=== PATIENT | male | born 1960 | race African-American/Black ===

== ENCOUNTER 2023-06-17 21:38 | Emergency (ER) | payer BC ==
[~2023-06-17] VITALS: Ht 182.9 cm; Wt 108.0 kg
[2023-06-17 22:32] VITALS: BP_SYST 115; PULSE 89; RESP 16; TEMP 97.6; O2SAT 95
[2023-06-17 23:36] LABS: INFLUENZA TYPE B NEGATIVE (NEGATIVE)
[2023-06-17 23:37] LABS: INFLUENZA TYPE A NEGATIVE (NEGATIVE)
[2023-06-17 23:39] LABS: COVID19 ANTIGEN SOFIA FIA POSITIVE (NEGATIVE)
[2023-06-17] MEDS ORDERED: NIRM1TAB PO ×2 (23:53→23:58)
[2023-06-17] MEDS ORDERED: PHEDM120 PO ×2 (23:53→23:58)
[2023-06-17] MEDS ORDERED: IBUP-1969 PO ×2 (23:53→23:58)
[2023-06-18 00:20] VITALS: BP_SYST 135; PULSE 91; RESP 16; TEMP 97.6; O2SAT 95
== END 2023-06-18 00:21 | disposition home or self-care (01) ==
LOC: SED 21:38
DX: U07.1 COVID-19 (principal); R05.9 Cough, unspecified; R09.81 Nasal congestion; M79.10 Myalgia, unspecified site; Z79.899 Other long term (current) drug therapy
CPT/HCPCS: 36415; 71045; 99284

== ENCOUNTER 2023-09-11 06:23 | Emergency (ER) | payer BC ==
[~2023-09-11] VITALS: Ht 182.9 cm; Wt 104.3 kg
[~2023-09-11 06:23] MED LIST: CHLO25TA2 PO; IBUP-1969 PO; LOSA50TA28 PO; PHEDM120 PO; TAMS0.4C96 PO
[2023-09-11 06:33] VITALS: BP_SYST 157; PULSE 74; RESP 18; TEMP 97.4; O2SAT 96
[2023-09-11] MEDS ORDERED: NEO/5DRO3 OP ×2 (06:53→12:44)
[2023-09-11 07:06] VITALS: BP_SYST 157; PULSE 74; RESP 18; TEMP 97.4; O2SAT 96
== END 2023-09-11 07:07 | disposition home or self-care (01) ==
LOC: SED 06:23
DX: B30.9 Viral conjunctivitis, unspecified (principal); H57.89 Other specified disorders of eye and adnexa; I10 Essential (primary) hypertension; Z79.899 Other long term (current) drug therapy
CPT/HCPCS: 99283

== ENCOUNTER 2023-10-13 06:50 | Inpatient (IN) | payer BC ==
[~2023-10-13] VITALS: Ht 188 cm; Wt 103.6 kg
[~2023-10-13 06:50] MED LIST changes: +NEO/5DRO3 OP
[2023-10-13 07:02] VITALS: BP_SYST 117; PULSE 86; RESP 18; TEMP 99.2; O2SAT 94
[2023-10-13 07:24] LABS: BASOPHILS % (AUTO) 0.2 % (0.0-2.0); EOSINOPHILS % (AUTO) 0.5 % (0.0-4.0); HEMATOCRIT 49.2 % (36-54); HEMOGLOBIN 16.7 g/dL (14.0-18.0); LYMPHOCYTES # (AUTO) 0.4 K/uL (1.0-5.5); LYMPHOCYTES % (AUTO) 7.2 % (20.5-51.5); MEAN CORPUSCULAR HEMOGLOBIN 31 pg (27-31); MEAN CORPUSCULAR HGB CONC 34 % (32-36); MEAN CORPUSCULAR VOLUME 90 fL (79.0-98.0); MONOCYTES # (AUTO) 0.7 K/uL (0.0-1.0); MONOCYTES % (AUTO) 11.3 % (1.7-9.3); NEUTROPHILS # (AUTO) 4.9 K/uL (1.8-7.7); NEUTROPHILS % (AUTO) 80.8 % (40.0-70.0); PLATELET COUNT (AUTO) 156 K/uL (130-430); RED BLOOD CELL COUNT(AUTO) 5.46 MIL/uL (4.2-6.2); RED CELL DISTRIBUTION WIDTH 13.7 % (9.0-15.0); WHITE BLOOD COUNT (AUTO) 6.1 K/uL (4.8-10.8)
[2023-10-13 07:38] LABS: CALCIUM 8.9 mg/dL (8.4-11.0); CREATININE 1.03 mg/dL (0.55-1.30); POTASSIUM 3.6 mmol/L (3.5-5.1)
[2023-10-13] MEDS: MORPHINE 2 MG/ML INJ. SYRINGE IVP ONE ×2 (08:00→09:45)
[2023-10-13] MEDS: ONDANSETRON HCL 4 MG/2 ML VIAL IVP ONE (08:27)
[2023-10-13 09:41] LABS: BILIRUBIN,URINE NEGATIVE (NEGATIVE); BLOOD, URINE NEGATIVE (NEGATIVE); CLARITY/URINE CLEAR (CLEAR); COLOR,URINE YELLOW (YELLOW); GLUCOSE,URINE NEGATIVE (NEGATIVE); KETONES,URINE NEGATIVE (NEGATIVE); LEUKOCYTE ESTERASE ,URINE NEGATIVE (NEGATIVE); NITRITE, URINE NEGATIVE (NEGATIVE); PROTEIN URINE NEGATIVE (NEGATIVE); UROBILINOGEN,URINE 0.2 (0.2-1.0)
[2023-10-13] MEDS ORDERED: FLUT1BLS PO (09:52)
[2023-10-13] MEDS ORDERED: GASTROGRAFIN 120 ML ONE (13:10)
[2023-10-13] MEDS: KCL 20 mEq in 0.45% NS 1000 mL 1,000 ML IV ONE (13:15)
[2023-10-13 16:30] VITALS: BP_SYST 134; PULSE 85; RESP 18; TEMP 100.2
[2023-10-13 20:00] VITALS: BP_SYST 139; PULSE 83; RESP 20; TEMP 97.7; O2SAT 95
[2023-10-13 22:08] VITALS: O2SAT 95
[2023-10-13 22:25] VITALS: BP_SYST 139; PULSE 83; RESP 20; TEMP 97.7; O2SAT 95
[2023-10-14] VITALS: BP_SYST 123; PULSE 82; RESP 18; TEMP 98.4; O2SAT 96
[2023-10-14 07:46] LABS: BASOPHILS # (AUTO) 0.1 K/uL (0.0-0.2); BASOPHILS % (AUTO) 1.1 % (0.0-2.0); EOSINOPHILS % (AUTO) 0.2 % (0.0-4.0); HEMATOCRIT 49.3 % (36-54); HEMOGLOBIN 16.8 g/dL (14.0-18.0); LYMPHOCYTES # (AUTO) 0.4 K/uL (1.0-5.5); LYMPHOCYTES % (AUTO) 5.9 % (20.5-51.5); MEAN CORPUSCULAR HEMOGLOBIN 31 pg (27-31); MEAN CORPUSCULAR HGB CONC 34 % (32-36); MEAN CORPUSCULAR VOLUME 90 fL (79.0-98.0); MONOCYTES # (AUTO) 0.9 K/uL (0.0-1.0); NEUTROPHILS # (AUTO) 5.4 K/uL (1.8-7.7); NEUTROPHILS % (AUTO) 79.8 % (40.0-70.0); PLATELET COUNT (AUTO) 134 K/uL (130-430); RED BLOOD CELL COUNT(AUTO) 5.46 MIL/uL (4.2-6.2); RED CELL DISTRIBUTION WIDTH 14.1 % (9.0-15.0); WHITE BLOOD COUNT (AUTO) 6.7 K/uL (4.8-10.8)
[2023-10-14 07:54] VITALS: BP_SYST 119; PULSE 92; RESP 18; TEMP 98.8; O2SAT 98
[2023-10-14 07:56] LABS: CALCIUM 8.7 mg/dL (8.4-11.0); CREATININE 1.07 mg/dL (0.55-1.30); POTASSIUM 3.7 mmol/L (3.5-5.1)
[2023-10-14] MEDS: D5/0.45 NS 1,000 ML IV SCH (09:33)
[2023-10-14 09:34] VITALS: O2SAT 96
[2023-10-14 12:00] VITALS: BP_SYST 128; PULSE 84; RESP 18; TEMP 98.1; O2SAT 98
[2023-10-14 16:00] VITALS: BP_SYST 137; PULSE 84; RESP 18; TEMP 98.6; O2SAT 97
[2023-10-14 20:25] VITALS: BP_SYST 138; PULSE 80; RESP 17; TEMP 98.7; O2SAT 97
[2023-10-14] MEDS: LOSARTAN POTASSIUM 50 MG TABLET (COZAAR) PO SCH (20:25)
[2023-10-14] MEDS ORDERED: IBUPROFEN 200 MG TABLET PO PRN (22:00)
[2023-10-14] MEDS: IBUPROFEN 400 MG TABLET PO PRN (23:13)
[2023-10-14] MEDS: IBUPROFEN 400 MG TABLET ONE (23:16)
[2023-10-15] VITALS (7 sets, daily range): BP systolic 117–132; PULSE 63–76; RESP 16–18; TEMP 96.7–98.7; O2SAT 94–96
[2023-10-15 09:45] LABS: BASOPHILS % (AUTO) 0.4 % (0.0-2.0); EOSINOPHILS % (AUTO) 1.1 % (0.0-4.0); HEMATOCRIT 45.3 % (36-54); HEMOGLOBIN 15.4 g/dL (14.0-18.0); LYMPHOCYTES # (AUTO) 0.7 K/uL (1.0-5.5); LYMPHOCYTES % (AUTO) 22.6 % (20.5-51.5); MEAN CORPUSCULAR HEMOGLOBIN 30 pg (27-31); MEAN CORPUSCULAR HGB CONC 34 % (32-36); MEAN CORPUSCULAR VOLUME 88 fL (79.0-98.0); MONOCYTES % (AUTO) 30.8 % (1.7-9.3); NEUTROPHILS # (AUTO) 1.5 K/uL (1.8-7.7); NEUTROPHILS % (AUTO) 45.1 % (40.0-70.0); PLATELET COUNT (AUTO) 128 K/uL (130-430); RED BLOOD CELL COUNT(AUTO) 5.13 MIL/uL (4.2-6.2); RED CELL DISTRIBUTION WIDTH 13.6 % (9.0-15.0); WHITE BLOOD COUNT (AUTO) 3.3 K/uL (4.8-10.8)
[2023-10-15 10:02] LABS: CALCIUM 8.6 mg/dL (8.4-11.0); CREATININE 0.96 mg/dL (0.55-1.30); POTASSIUM 3.4 mmol/L (3.5-5.1)
[2023-10-15] MEDS: POTASSIUM CHLORIDE 20 MEQ TABLET.ER PO ONE (15:53)
[2023-10-16] VITALS: BP_SYST 143; PULSE 70; RESP 18; TEMP 98.5; O2SAT 95
[2023-10-16 01:24] VITALS: BP_SYST 128; PULSE 70; RESP 18; TEMP 97.8; O2SAT 94
[2023-10-16 04:06] LABS: BASOPHILS % (AUTO) 0.4 % (0.0-2.0); EOSINOPHILS # (AUTO) 0.1 K/uL (0.0-0.4); EOSINOPHILS % (AUTO) 1.8 % (0.0-4.0); HEMATOCRIT 44.6 % (36-54); HEMOGLOBIN 15.6 g/dL (14.0-18.0); LYMPHOCYTES # (AUTO) 0.9 K/uL (1.0-5.5); LYMPHOCYTES % (AUTO) 15.7 % (20.5-51.5); MEAN CORPUSCULAR HEMOGLOBIN 31 pg (27-31); MEAN CORPUSCULAR HGB CONC 35 % (32-36); MEAN CORPUSCULAR VOLUME 88 fL (79.0-98.0); MONOCYTES # (AUTO) 1.1 K/uL (0.0-1.0); MONOCYTES % (AUTO) 18.8 % (1.7-9.3); NEUTROPHILS # (AUTO) 3.6 K/uL (1.8-7.7); NEUTROPHILS % (AUTO) 63.3 % (40.0-70.0); PLATELET COUNT (AUTO) 132 K/uL (130-430); RED BLOOD CELL COUNT(AUTO) 5.05 MIL/uL (4.2-6.2); RED CELL DISTRIBUTION WIDTH 13.6 % (9.0-15.0); WHITE BLOOD COUNT (AUTO) 5.7 K/uL (4.8-10.8)
[2023-10-16 04:20] LABS: CALCIUM 8.4 mg/dL (8.4-11.0); CREATININE 0.93 mg/dL (0.55-1.30); POTASSIUM 3.4 mmol/L (3.5-5.1)
[2023-10-16 08:00] VITALS: BP_SYST 126; PULSE 84; RESP 18; TEMP 97.9; O2SAT 96
[2023-10-16 09:53] VITALS: BP_SYST 126; PULSE 84; RESP 18; TEMP 97.9; O2SAT 96
[2023-10-16 12:41] VITALS: BP_SYST 133; PULSE 77; RESP 16; TEMP 97.4; O2SAT 95
[2023-10-16 12:59] VITALS: BP_SYST 147; PULSE 73; RESP 19; TEMP 97.4; O2SAT 96
== END 2023-10-16 14:55 | disposition home or self-care (01) | DRG 390 ==
LOC: SED 06:50 → SMU 13:05 → OBSVTOIN 13:05 → SMU 15:08 → UNDODISOB 10-16 14:55
PROVIDERS: ADMIT Specialist; ATTEND Specialist
DX: K56.600 Partial intestinal obstruction, unspecified as to cause (principal); N40.0 Benign prostatic hyperplasia without lower urinary tract symptoms; K52.9 Noninfective gastroenteritis and colitis, unspecified; Z68.29 Body mass index [BMI] 29.0-29.9, adult; I10 Essential (primary) hypertension; E66.9 Obesity, unspecified; Z85.46 Personal history of malignant neoplasm of prostate; Z79.899 Other long term (current) drug therapy
CPT/HCPCS: 36415; 71045; 74018; 74250; 76376; 80048; 81001; 81003; 83690; 85025; 96361; 96374; 99285; G0378; J2270; J2405; J3480; Q9963; Q9967